=== PATIENT | male | born 1970 | race African-American/Black ===

== ENCOUNTER 2018-03-20 10:21 | Emergency (ER) | payer MEDICAID ==
[~2018-03-20] VITALS: Ht 160 cm; Wt 68.0 kg
--- NOTE | 2018-03-20 10:58 | NUR ---
ED Nurse Note: Pt came in from home due to " knot in medial upper abdomen" for 3 days . Pt had hx of Colostomy bag and multiple surgeries in [place] past. Pain 3/10 anil. No complaint of n/v/d. AOx4, VSS anil. Will cont to monitor.
[2018-03-20 11:02] VITALS: BP 161/132
--- NOTE | 2018-03-20 11:21 | NUR ---
HAND-OFF: Report given to LOLLY Saldivar.
--- NOTE | 2018-03-20 11:40 | NUR ---
ED Nurse Note: pt is d/c per ermd order. pt is aox4, with steady gait. pt d/c and prescriptions instructions given. pt verbalized understanding. pt took all belongings. pt id band removed and iv site discontinued without complication.
[2018-03-20 11:42] VITALS: BP 147/83
--- NOTE | 2018-03-22 22:31 | Emergency Room Report ---
History of Present Illness General Chief Complaint: Abdominal Pain Source: Patient Present Illness HPI 48-year-old male presents ED for evaluation. Patient complaining of a "knot" in his abdomen. Noticed it about 2 days ago. States there is not really pain but he is concerned. History of exploratory laparoscopy and colostomy and reversible colostomy. Denies any fevers or chills. Denies nausea or vomiting. States he is passing flatus and is having bowel movements. No other aggravating relieving factors. Denies any other associated symptoms Allergies: Coded Allergies: No Known Allergies (Unverified , 03/20/18) Patient History Past Medical History: HTN Past Surgical History: other - exlap, colostomy, reversal Pertinent Family History: none Social History: Denies: smoking, alcohol use, drug use Immunizations: UTD Reviewed Nursing Documentation: PMH: Agreed; PSxH: Agreed Nursing Documentation-PMH Hx Hypertension: Yes Review of Systems All Other Systems: negative except mentioned in HPI Physical Exam Vital Signs Date Time Temp Pulse Resp B/P (MAP) Pulse Ox O2 Delivery O2 Flow Rate FiO2 03/20/18 10:41 98.4 92 18 200/111 98 Room Air Sp02 EP Interpretation: reviewed, normal General Appearance: no apparent distress, alert, GCS 15, non-toxic Head: normocephalic Eyes: bilateral eye normal inspection, bilateral eye PERRL ENT: normal ENT inspection Neck: normal inspection Respiratory: chest non-tender, lungs clear, normal breath sounds, speaking full sentences Cardiovascular #1: regular rate, rhythm, no edema Gastrointestinal: normal bowel sounds, non tender, soft, non-distended, no guarding, no rebound, other - surgical scars on abdomen. nodular swelling to mid abdomen. no surrounding erythema/induration Medical Decision Making Diagnostic Impression: Primary Impression: Nodule in muscle ER Course Hospital Course 48-year-old male presents ED with nodular swelling to abdomen. History of exploratory laparoscopy and colostomy Differential diagnoses include: Cellulitis, SBO, abscess Clinical course Patient placed on stretcher. After initial history, physical exam reveals a male in no acute distress. On exam there is evidence of healing scars to the abdomen. There is a nodular swelling appreciated to mid abdomen. Mid way of the midline surgical scar. There is no erythema or induration. Abdomen is otherwise soft. No guarding or rebound. evaluated by bedside ultrasound. There is no cobblestoning, no signs of an abscess or fluid collection. Dr. Bernard at bedside to evaluate patient. Agrees there is no acute abdomen or signs suggesting bowel obstruction. No signs of infection. Likely scar tissue, fibrous changes secondary to suture Safe for discharge and close outpatient follow-up. States he'll follow-up with his surgeon. Diagnosis - nodule in muscle stable and discharged to home. Instructed to followup with PMD/surgery. Instructed return to ED if symptoms recur or worsen Last Vital Signs Date Time Temp Pulse Resp B/P (MAP) Pulse Ox O2 Delivery O2 Flow Rate FiO2 03/20/18 11:42 98.2 73 21 147/83 100 Room Air Status: improved Disposition: HOME, SELF-CARE Condition: Stable Referrals: NON PHYSICIAN (PCP) Lesia Menard [facility] Patient Instructions: Adhesions, [id number] Additional Instructions: return to ED if pain worsens, you develop nausea or vomiting, or you develop fever Porter Villalpando MD Mar 22, 2018 22:31
== END 2018-03-20 11:40 | disposition home or self-care (01) ==
LOC: EMR 11:00
DX: R22.9 Localized swelling, mass and lump, unspecified (principal); I10 Essential (primary) hypertension
CPT/HCPCS: 99282